=== PATIENT | female | born 1970 | race Two or more races ===

== ENCOUNTER 2019-06-16 20:10 | Emergency (ER) | payer MEDICAID ==
[~2019-06-16] VITALS: Ht 152.4 cm; Wt 83.9 kg
[2019-06-17] MEDS ORDERED: KETOROLAC TROMETH 60MG/2ML VIAL IM ONE (01:45)
[2019-06-17 02:02] LABS: Basophils # (auto) 0.1 uL; Basophils % (auto) 1.1 % (0.0-2.0); Eosinophils # (auto) 0.1 uL; Eosinophils % (auto) 1.2 % (0.0-7.0); Hematocrit 43.7 % (36.0-46.0); Lymphocytes # (auto) 2.6 uL; Lymphocytes % (auto) 32.5 % (10.0-50.0); Mean Corpuscular Hgb Conc. 34.3 g/dL (32.0-36.0); Mean Corpuscular Volume 96.2 fL (80.0-100.0); Monocytes # (auto) 0.5 uL; Monocytes % (auto) 6.6 % (0.0-12.0); Neutrophils # (auto) 4.6 uL; Neutrophils % (auto) 58.6 % (37.0-80.0); Platelet Count (auto) 263 10^3/uL (140-450); Red Blood Cells 4.54 10^6/uL (4.0-5.20); White Blood Cell 7.9 10^3/uL (4.4-10.8)
[2019-06-17 02:20] LABS: Albumin 3.7 g/dL (3.4-5.0); Calcium 9.2 mg/dL (8.5-10.1); Potassium 4.1 mmol/L (3.5-5.1)
[2019-06-17 02:27] LABS: Bilirubin, Total 0.4 mg/dL (0.2-1.0); Total Protein 7.6 g/dL (6.4-8.2)
[2019-06-17 02:31] LABS: Amylase 52 U/L (25-115); Lipase 56 U/L (73-393)
[2019-06-17 03:32] LABS: Urine Bacteria NONE SEEN /hpf (None Seen); Urine Blood 2+ /uL (Negative); Urine Mucus FEW (None Seen); Urine Specific Gravity 1.021 (1.001-1.035); Urine WBC 1 /hpf (0 - 5)
[2019-06-17 03:50] VITALS: BP 123/61
== END 2019-06-17 04:52 | disposition home or self-care (01) ==
LOC: ER 20:13
DX: M54.5 Low back pain (principal); R10.13 Epigastric pain; R51 Headache
CPT/HCPCS: 36415; 72131; 74176; 80053; 81001; 82150; 83690; 85025; 96372; 99284; J1885

== ENCOUNTER 2023-08-06 13:44 | Emergency (ER) | payer MEDICAID ==
[~2023-08-06] VITALS: Ht 152.4 cm; Wt 90.3 kg
[2023-08-06] MEDS ORDERED: KETOROLAC TROMETH 30 MG/ML 1ML VIAL IV ONE (19:15)
[2023-08-06] MEDS ORDERED: IBUP1TAB4 PO (19:21)
[2023-08-06 19:25] VITALS: BP 145/70; PULSE 71; RESP 18; TEMP 96.8; O2SAT 100
== END 2023-08-06 20:09 | disposition home or self-care (01) ==
LOC: ER 13:44
DX: M25.461 Effusion, right knee (principal); W10.9XXA Fall (on) (from) unspecified stairs and steps, initial encounter; Y93.89 Activity, other specified; Y92.89 Other specified places as the place of occurrence of the external cause; Y99.8 Other external cause status
CPT/HCPCS: 73562; 96374; 99283; J1885

== ENCOUNTER 2023-09-30 08:37 | Emergency (ER) | payer MEDICAID ==
[~2023-09-30] VITALS: Ht 152.4 cm; Wt 90.8 kg
[~2023-09-30 08:37] MED LIST: IBUP1TAB4 PO
[2023-09-30 09:35] LABS: Basophils # (auto) 0 10 ^3/uL (0-0.2); Basophils % (auto) 0.8 % (0.0-2.0); Eosinophils # (auto) 0.1 10 ^3/uL (0-0.8); Hematocrit 44.2 % (36.0-46.0); Hemoglobin 15.1 g/dL (12.2-16.2); Lymphocytes # (auto) 2.1 10 ^3/uL (0.4-5.4); Mean Corpuscular Hemoglobin 32.3 pg (28.0-32.0); Mean Corpuscular Hgb Conc. 34.1 g/dL (32.0-36.0); Mean Corpuscular Volume 94.5 fL (80.0-100.0); Monocytes # (auto) 0.4 10 ^3/uL (0-1.3); Monocytes % (auto) 6.2 % (0.0-12.0); Neutrophils # (auto) 3.7 10 ^3/uL (1.6-8.6); Nucleated Red Blood Cells % 0.2 %; Red Blood Cells 4.67 10^6/uL (4.0-5.20); Red Cell Distribution Width 13.2 % (11.8-14.3); White Blood Cell 6.3 10^3/uL (4.4-10.8)
[2023-09-30 09:43] LABS: Urine Bacteria FEW /hpf (None Seen); Urine Blood Negative /uL (Negative); Urine Clarity Clear (Clear); Urine Protein, UAD Negative (Negative); Urine Specific Gravity 1.021 (1.001-1.035); Urine Urobilinogen Normal (Negative); Urine WBC 7 /hpf (0 - 5)
[2023-09-30 09:44] LABS: Urine Color Yellow (Yellow)
[2023-09-30 09:46] LABS: Alanine Aminotransferase 40 U/L (7-40); Albumin 4.3 g/dL (3.2-4.8); Alkaline Phosphatase 103 U/L (46-116); Anion Gap 10 (5-15); Aspartate Aminotransferase 20 U/L (13-40); Blood Urea Nitrogen 26 mg/dL (9-23); Calcium 9.5 mg/dL (8.5-10.1); Carbon Dioxide 21 mmol/L (20-30); Chloride 110 mmol/L (98-107); Glucose 108 mg/dL (74-106); Potassium 4.4 mmol/L (3.5-5.1); Sodium 141 mmol/L (136-145)
[2023-09-30 09:47] LABS: Bilirubin, Total 0.2 mg/dL (0.2-1.0)
[2023-09-30] MEDS ORDERED: KETOROLAC TROMETH 30 MG/ML 1ML VIAL IV ONE (12:30)
[2023-09-30 13:15] VITALS: BP 136/71; PULSE 56; RESP 17; TEMP 98.1; O2SAT 98
[2023-09-30] MEDS ORDERED: KETOROLAC TROMETH 60MG/2ML VIAL IM ONE (13:15)
[2023-09-30] MEDS ORDERED: DICL50TA2 PO (13:40)
[2023-09-30] MEDS ORDERED: CYCL-839 PO (13:40)
[2023-09-30] MEDS ORDERED: NITR-87 PO (14:00)
== END 2023-09-30 14:01 | disposition home or self-care (01) ==
LOC: ER 08:37
DX: M75.52 Bursitis of left shoulder (principal); N39.0 Urinary tract infection, site not specified; M25.512 Pain in left shoulder; R07.89 Other chest pain; R51.9 Headache, unspecified; Z90.5 Acquired absence of kidney; Z79.899 Other long term (current) drug therapy
CPT/HCPCS: 36415; 71046; 72125; 73030; 80053; 81001; 84484; 85025; 93005; 96372; 99285; J1885